=== PATIENT | female | born 1950 | race American Indian/Alaskan Native ===

== ENCOUNTER 2019-05-29 11:32 | Inpatient (IN) | payer MEDICARE ==
--- NOTE | 2019-05-29 13:10 | Emergency Department Report ---
ED GI Bleed HPI - General Chief complaint: GI Bleed Stated complaint: RECTAL BLEEDING Time Seen by Provider: 05/29/19 12:41 Source: patient, EMS Mode of arrival: Stretcher Limitations: No Limitations - History of Present Illness Initial comments: 68-year-old female the past medical history of diverticulitis and status post colostomy and 2013 with reversal in 2013 and history of GI bleed while she had a colostomy in place presents to the hospital complaining of rectal bleeding since 5 AM. Patient had initial perishables the bathroom but had brown bloody stool incontinence before making it to the toilet. Patient then had additional uncontrollable brown bloody stools at home and then after arrival to the ED. Patient does not take any blood thinners including aspirin. No pain reported. - Related Data Home Medications Medication Instructions Recorded Confirmed Last Taken No Known Home Medications [No 05/29/19 05/29/19 Unknown Reported Home Medications] Allergies Allergy/AdvReac Type Severity Reaction Status Date / Time No Known Allergies Allergy Unverified 05/29/19 13:11 ED Review of Systems ROS: Stated complaint: RECTAL BLEEDING Other details as noted in HPI Comment: All other systems reviewed and negative ED Past Medical Hx - Social History Smoking Status: Current Every Day Smoker Substance Use Type: Alcohol - Medications Home Medications: Home Medications Medication Instructions Recorded Confirmed Last Taken Type No Known Home Medications [No 05/29/19 05/29/19 Unknown History Reported Home Medications] ED Physical Exam - General Limitations: No Limitations - Other Other exam information: General: No acute distress Head: Atraumatic Eyes: normal appearance ENT: Moist mucous membranes Neck: Normal appearance, no midline tenderness Chest: Clear to auscultation bilaterally CV: Regular rate and rhythm Abdomen: Soft, normal bowel sounds, nontender, nondistended, no rebound or guarding, abdominal scar noted. brwon bloody stool soiled pants Back: Normal inspection Extremity: Normal inspection, full range of motion Neuro: Alert O x 3, no facial asymmetry, speech clear, no gross motor sensory deficit Psych: Appropriate behavior Skin: No rash ED Course Vital Signs 05/29/19 05/29/19 05/29/19 12:35 13:20 13:32 Temperature 98.0 F Pulse Rate 97 H 92 H Respiratory 20 15 18 Rate Blood Pressure 152/96 162/93 Blood Pressure [Left] O2 Sat by Pulse 100 97 100 Oximetry 05/29/19 05/29/19 05/29/19 13:38 14:20 14:47 Temperature Pulse Rate 87 97 H 91 H Respiratory 87 H 14 14 Rate Blood Pressure 162/93 Blood Pressure 162/90 150/100 [Left] O2 Sat by Pulse 98 99 98 Oximetry 05/29/19 05/29/19 05/29/19 15:12 15:20 15:56 Temperature Pulse Rate 87 88 88 Respiratory 11 L 12 15 Rate Blood Pressure 150/100 154/89 Blood Pressure 154/89 [Left] O2 Sat by Pulse 96 97 97 Oximetry 05/29/19 05/29/19 05/29/19 16:00 16:40 17:00 Temperature Pulse Rate 105 H 97 H 107 H Respiratory 16 13 16 Rate Blood Pressure 154/89 118/71 119/72 Blood Pressure [Left] O2 Sat by Pulse 97 99 99 Oximetry 05/29/19 05/29/19 05/29/19 17:27 17:55 18:52 Temperature 99 F Pulse Rate 95 H 88 89 Respiratory 15 16 12 Rate Blood Pressure Blood Pressure 138/89 111/77 144/82 [Left] O2 Sat by Pulse 99 97 99 Oximetry 05/29/19 05/29/19 05/29/19 19:15 19:45 20:30 Temperature 98.9 F Pulse Rate 106 H 113 H 100 H Respiratory 14 13 12 Rate Blood Pressure Blood Pressure 165/102 111/78 127/74 [Left] O2 Sat by Pulse 97 99 99 Oximetry - Reevaluation(s) Reevaluation #1: 05/29/19 15:19 pt will need admission no hypotension, tachycardia, or anemia at this time Patient signed out to DR Crowe to f/u cta and admit pt to hospitalist - Consultations Consultation #1: 05/29/19 14:02 case d/w DR gates (gi), rec cta, consult ordered ED Medical Decision Making - Lab Data Result diagrams: 05/30/19 05:57 05/30/19 05:57 Lab Results 05/29/19 05/29/19 05/29/19 Range/Units 13:01 13:01 13:01 WBC 5.2 (4.5-11.0) K/mm3 RBC 4.33 (3.65-5.03) M/mm3 Hgb 13.9 (10.1-14.3) gm/dl Hct 41.3 (30.3-42.9) % MCV 95 (79-97) fl MCH 32 (28-32) pg MCHC 34 (30-34) % RDW 13.4 (13.2-15.2) % Plt Count 233 (140-440) K/mm3 Lymph % (Auto) 45.8 H (13.4-35.0) % [place] % (Auto) 9.1 H (0.0-7.3) % Eos % (Auto) 3.9 (0.0-4.3) % Baso % (Auto) Case Management Specialist Lymph # 2.4 (1.2-5.4) K/mm3 [place] # 0.5 (0.0-0.8) K/mm3 Eos # 0.2 (0.0-0.4) K/mm3 Baso # 0.1 (0.0-0.1) K/mm3 Seg Neutrophils % 39.4 L (40.0-70.0) % Seg Neutrophils # 2.1 (1.8-7.7) K/mm3 PT 14.3 (12.2-14.9) Sec. INR 1.10 (0.87-1.13) APTT 31.6 (24.2-36.6) Sec. Sodium Potassium Chloride Carbon Dioxide Anion Gap BUN Creatinine Estimated GFR BUN/Creatinine Ratio Glucose Calcium Total Bilirubin AST ALT Alkaline Phosphatase Total Protein Albumin Albumin/Globulin Ratio Blood Type B POSITIVE Antibody Screen Negative 05/29/19 05/29/19 Range/Units 13:01 13:53 WBC (4.5-11.0) K/mm3 RBC (3.65-5.03) M/mm3 Hgb (10.1-14.3) gm/dl Hct (30.3-42.9) % MCV (79-97) fl MCH (28-32) pg MCHC (30-34) % RDW (13.2-15.2) % Plt Count (140-440) K/mm3 Lymph % (Auto) (13.4-35.0) % [place] % (Auto) (0.0-7.3) % Eos % (Auto) (0.0-4.3) % Baso % (Auto) Lymph # (1.2-5.4) K/mm3 [place] # (0.0-0.8) K/mm3 Eos # (0.0-0.4) K/mm3 Baso # (0.0-0.1) K/mm3 Seg Neutrophils % (40.0-70.0) % Seg Neutrophils # (1.8-7.7) K/mm3 PT (12.2-14.9) Sec. INR (0.87-1.13) APTT (24.2-36.6) Sec. Sodium TNR 139 Potassium TNR 3.9 Chloride TNR 103.9 Carbon Dioxide TNR 25 Anion Gap TNR 14 BUN TNR 18 H Creatinine TNR 0.9 Estimated GFR TNR > 60 BUN/Creatinine Ratio TNR 20 Glucose TNR 109 H Calcium TNR 9.3 Total Bilirubin TNR 0.80 AST TNR 95 H ALT TNR 99 H Alkaline Phosphatase TNR 84 Total Protein TNR 6.9 Albumin TNR 3.5 L Albumin/Globulin Ratio TNR 1.0 Blood Type Antibody Screen - Medical Decision Making Patient will require admission for significant GI bleed. Vitals and hemoglobin without critical findings. GI consulted - Differential Diagnosis diverticula bleed, AVM, cancer Critical Care Time: No Critical care attestation.: If time is entered above; I have spent that time in minutes in the direct care of this critically ill patient, excluding procedure time. ED Disposition Clinical Impression: Rectal bleed, History of diverticulitis Disposition: OP ADMIT IP TO THIS HOSP Is pt being admited?: Yes Condition: Stable Time of Disposition: 16:08
[2019-05-29 13:27] LABS: Basophils # (Auto) 0.1 K/mm3 (0.0-0.1); Eosinophils # (Auto) 0.2 K/mm3 (0.0-0.4); Eosinophils % (Auto) 3.9 % (0.0-4.3); Hematocrit 41.3 % (30.3-42.9); Hemoglobin 13.9 gm/dl (10.1-14.3); Lymphocytes # (Auto) 2.4 K/mm3 (1.2-5.4); Lymphocytes % (Auto) 45.8 % (13.4-35.0); Mean Corpuscular HGB Conc 34 % (30-34); Mean Corpuscular Volume 95 fl (79-97); Monocytes # (Auto) 0.5 K/mm3 (0.0-0.8); Monocytes % (Auto) 9.1 % (0.0-7.3); Platelet Count 233 K/mm3 (140-440); Red Blood Count 4.33 M/mm3 (3.65-5.03); Red Cell Distribution Width 13.4 % (13.2-15.2)
[2019-05-29 13:28] LABS: INR 1.1 (0.87-1.13)
[2019-05-29 13:29] LABS: Partial Thromboplastin Time 31.6 Sec. (24.2-36.6)
[2019-05-29 13:47] LABS: BUN/Creatinine Ratio TNR; Blood Urea Nitrogen TNR mg/dL (7-17); Calcium TNR mg/dL (8.4-10.2)
[2019-05-29 13:48] LABS: Alanine Aminotransferase TNR units/L (7-56); Albumin TNR g/dL (3.9-5); Hemolysis Index TNR
[2019-05-29 14:30] LABS: Alanine Aminotransferase 99 units/L (7-56); Albumin 3.5 g/dL (3.9-5); BUN/Creatinine Ratio 20; Blood Urea Nitrogen 18 mg/dL (7-17); Calcium 9.3 mg/dL (8.4-10.2); Hemolysis Index 8
--- NOTE | 2019-05-29 15:10 | Gastroenterology Consultation ---
History of Present Illness - Reason for Consult Consult date: 05/29/19 GI bleed Requesting physician: LISA MARROQUIN - History of Present Illness Patient is a 68 y/o female with PMH of diverticulitis s/p colostomy with reversal in 2012 who presented to ED with c/o rectal bleeding to which GI has been consulted. This afternoon patient was resting on stretcher w/o acute distress. Reports acute onset of rectal bleeding this am that has continued with multiple episode this afternoon with bright red and dark red blood. Admits to mild lower abdominal discomfort described as cramping. Denies fever, CP, SOB, N/v, hematemeis, diarrhea, or constipation. No hx of prior GI bleeding or PUD. No NSAID use or blood thinning medications at home. Drinks on average 3 shots of liquor daily but denies a hx of liver disease. Last colonoscopy in 2012 prior to reversal. Past History Past Medical History: other (see HPI) Past Surgical History: bowel surgery (colostomy with reversal ) Social history: smoking, other (alcohol) Medications and Allergies Allergies Allergy/AdvReac Type Severity Reaction Status Date / Time No Known Allergies Allergy Unverified 05/29/19 13:11 Active Meds: medications reviewed/updated as required Review of Systems - Review of Systems All systems: negative Gastrointestinal: abdominal pain (lower cramping), other (rectal bleeding) Exam - Constitutional Vital Signs: Temp Pulse Resp BP Pulse Ox 98.0 F 91 H 14 150/100 98 05/29/19 12:35 05/29/19 14:47 05/29/19 14:47 05/29/19 14:47 05/29/19 14:47 General appearance: no acute distress - EENT Eyes: PERRL, EOM intact ENT: hearing intact - Respiratory Respiratory effort: normal - Cardiovascular Rhythm: regular - Gastrointestinal General gastrointestinal: Present: soft, non-tender, non-distended, normal bowel sounds - Integumentary Integumentary: Present: warm, dry - Neurologic Neurological: alert and oriented x3 - Labs CBC & Chem 7: 05/29/19 13:01 05/29/19 13:53 Lab Results: Laboratory Results - last 24 hr 05/29/19 05/29/19 05/29/19 13:01 13:01 13:01 WBC 5.2 RBC 4.33 Hgb 13.9 Hct 41.3 MCV 95 MCH 32 MCHC 34 RDW 13.4 Plt Count 233 Lymph % (Auto) 45.8 H [place] % (Auto) 9.1 H Eos % (Auto) 3.9 Baso % (Auto) Civil Estimator Lymph # 2.4 [place] # 0.5 Eos # 0.2 Baso # 0.1 Seg Neutrophils % 39.4 L Seg Neutrophils # 2.1 PT 14.3 INR 1.10 APTT 31.6 Sodium Potassium Chloride Carbon Dioxide Anion Gap BUN Creatinine Estimated GFR BUN/Creatinine Ratio Glucose Calcium Total Bilirubin AST ALT Alkaline Phosphatase Total Protein Albumin Albumin/Globulin Ratio Blood Type B POSITIVE Antibody Screen Negative 05/29/19 05/29/19 13:01 13:53 WBC RBC Hgb Hct MCV MCH MCHC RDW Plt Count Lymph % (Auto) [place] % (Auto) Eos % (Auto) Baso % (Auto) Lymph # [place] # Eos # Baso # Seg Neutrophils % Seg Neutrophils # PT INR APTT Sodium TNR 139 Potassium TNR 3.9 Chloride TNR 103.9 Carbon Dioxide TNR 25 Anion Gap TNR 14 BUN TNR 18 H Creatinine TNR 0.9 Estimated GFR TNR > 60 BUN/Creatinine Ratio TNR 20 Glucose TNR 109 H Calcium TNR 9.3 Total Bilirubin TNR 0.80 AST TNR 95 H ALT TNR 99 H Alkaline Phosphatase TNR 84 Total Protein TNR 6.9 Albumin TNR 3.5 L Albumin/Globulin Ratio TNR 1.0 Blood Type Antibody Screen Assessment and Plan 1.GI bleed 2.H/o diverticulitis s/p colostomy with reversal 2012 -patient reports acute onset today of rectal bleeding with bright red and dark red blood x multiple episodes. +associated lower abd cramping. No hematemesis. -H/H WNL (13.9/41.3); continue to monitor H/H and transfuse as needed -currently HD stable -etiology-likely diverticular given history vs other -recommend stat CTA for further evaluation -if positive, consult IR for possible embolization -if negative with prep for colon +/- EGD tomorrow -Keep NPO for now -continue PPI and supportive care -will follow
[2019-05-29] MEDS ORDERED: PANTOPRAZOLE 40 MG INJ IV ONE (15:50)
[2019-05-29] MEDS: PANTOPRAZOLE 40 MG INJ IV SCH ×2 (15:56→23:26)
--- NOTE | 2019-05-29 16:19 | Cat Scan Report ---
CTA ABDOMEN AND PELVIS HISTORY: GI bleed COMPARISON: None. TECHNIQUE: Noncontrast CT abdomen obtained. Routine postcontrast CT angiography of the abdomen and p alycia performed. Multiplanar/MIP/3D reformats were post-processed. CONTRAST: 100 ml of Omnipaque 350 FINDINGS: CTA ABDOMEN: Abdominal Aorta: Mildly ectatic with scattered calcific plaques. No stenosis, dissection or aneurysm Celiac Artery: No significant abnormality. Superior Mesenteric Artery: No significant abnormality. Renal Arteries: Right: No significant abnormality. Left: No significant abnormality. Inferior Mesenteric Artery: No significant abnormality. CTA PELVIS: RIGHT: Common Iliac Artery: Mild scattered calcific plaques. No stenosis. Internal Iliac Artery: Mild scattered calcific plaques. No stenosis. External Iliac Artery: No significant abnormality. LEFT: Common Iliac Artery: No significant abnormality. Internal Iliac Artery: No significant abnormality. External Iliac Artery: No significant abnormality. NONTARGET STRUCTURES: ABDOMEN: GI:The liver, biliary system and pancreas are unremarkable. There are numerous diverticula throughou t the length of the colon. No bowel obstruction or focal inflammation. No obvious site of GI bleeding on CTA. :No significant abnormality. Lymphatics:No significant abnormality. PELVIS: :Multiple partially calcified fibroids are noted in the uterus. No adnexal abnormality. Osseous Structures: Moderate lumbar spondylosis. Additional Findings: Moderate infraumbilical hernia containing fat is identified. IMPRESSION: Mild atherosclerotic plaques in the aorta and common iliac arteries. No stenosis, aneurysm or dissect ion. No site of GI bleeding is detected on CTA. Extensive diverticulosis of the colon. Signer Name: Dieudonne Schrader Jr, MD Signed: 05/29/2019 4:14 PM Workstation Name: [id number]
--- NOTE | 2019-05-29 17:40 | History and Physical Report ---
History of Present Illness Chief complaint: blood per rectum History of present illness: 68-year-old woman with history of diverticulitis for which she had a colostomy in 2013 reversal the following year in 2013. She has a history of GI bleed due to diverticulosis. The patient presents with rectal bleeding x1 day. States that she has had large episodes of dark blood with incontinence. The patient denies dizziness, the patient denies any abdominal cramping or pain. - Past medical history; a history of diverticulosis, history of GI bleed, history of diverticulitis status post colostomy followed by reversal Past surgical history; colostomy and reversal Social history, current everyday smoker, admits to alcohol abuse daily Family history; noncontributory Past History Past Medical History: other (see HPI) Past Surgical History: bowel surgery (colostomy with reversal ) Social history: smoking, other (alcohol) Medications and Allergies Allergies Allergy/AdvReac Type Severity Reaction Status Date / Time No Known Allergies Allergy Unverified 05/29/19 13:11 Active Meds: Active Medications Pantoprazole Sodium (Protonix) 40 mg IV BID SUNITA Last Admin: 05/29/19 15:56 Dose: 40 mg Documented by: Polyethylene Glycol/Electrolytes (Golytely) 4,000 ml PO ONCE ONE Stop: 05/29/19 18:01 Review of Systems All systems: negative (blood per rectum) Constitutional: weakness Exam - Constitutional Vitals: Temp Pulse Resp BP Pulse Ox 99 F 95 H 15 138/89 99 05/29/19 17:27 05/29/19 17:27 05/29/19 17:27 05/29/19 17:27 05/29/19 17:27 General appearance: Present: no acute distress, well-nourished - EENT Eyes: Present: PERRL ENT: hearing intact, clear oral mucosa - Neck Neck: Present: supple, normal ROM - Respiratory Respiratory effort: normal Respiratory: bilateral: CTA - Cardiovascular Heart Sounds: Present: S1 & S2. Absent: rub, click - Extremities Extremities: pulses symmetrical, No edema Peripheral Pulses: within normal limits - Abdominal General gastrointestinal: Present: soft, non-tender, non-distended, normal bowel sounds Female genitourinary: Present: normal - Integumentary Integumentary: Present: clear, warm, dry - Musculoskeletal Musculoskeletal: gait normal, strength equal bilaterally - Psychiatric Psychiatric: appropriate mood/affect, intact judgment & insight - Neurologic Neurologic: CNII-XII intact, moves all extremities Results - Labs CBC & Chem 7: 05/29/19 19:03 05/29/19 13:53 Labs: Laboratory Last Values WBC 5.2 K/mm3 (4.5-11.0) 05/29/19 13:01 RBC 4.33 M/mm3 (3.65-5.03) 05/29/19 13:01 Hgb 13.9 gm/dl (10.1-14.3) 05/29/19 13:01 Hct 41.3 % (30.3-42.9) 05/29/19 13:01 MCV 95 fl (79-97) 05/29/19 13:01 MCH 32 pg (28-32) 05/29/19 13:01 MCHC 34 % (30-34) 05/29/19 13:01 RDW 13.4 % (13.2-15.2) 05/29/19 13:01 Plt Count 233 K/mm3 (140-440) 05/29/19 13:01 Lymph % (Auto) 45.8 % (13.4-35.0) H 05/29/19 13:01 [place] % (Auto) 9.1 % (0.0-7.3) H 05/29/19 13:01 Eos % (Auto) 3.9 % (0.0-4.3) 05/29/19 13:01 Baso % (Auto) Principal Database Developer 05/29/19 13:01 Lymph # 2.4 K/mm3 (1.2-5.4) 05/29/19 13:01 [place] # 0.5 K/mm3 (0.0-0.8) 05/29/19 13:01 Eos # 0.2 K/mm3 (0.0-0.4) 05/29/19 13:01 Baso # 0.1 K/mm3 (0.0-0.1) 05/29/19 13:01 Seg Neutrophils % 39.4 % (40.0-70.0) L 05/29/19 13:01 Seg Neutrophils # 2.1 K/mm3 (1.8-7.7) 05/29/19 13:01 PT 14.3 Sec. (12.2-14.9) 05/29/19 13:01 INR 1.10 (0.87-1.13) 05/29/19 13:01 APTT 31.6 Sec. (24.2-36.6) 05/29/19 13:01 Sodium 139 mmol/L (137-145) 05/29/19 13:53 Potassium 3.9 mmol/L (3.6-5.0) 05/29/19 13:53 Chloride 103.9 mmol/L (98-107) 05/29/19 13:53 Carbon Dioxide 25 mmol/L (22-30) 05/29/19 13:53 Anion Gap 14 mmol/L 05/29/19 13:53 BUN 18 mg/dL (7-17) H 05/29/19 13:53 Creatinine 0.9 mg/dL (0.7-1.2) 05/29/19 13:53 Estimated GFR > 60 ml/min 05/29/19 13:53 BUN/Creatinine Ratio 20 % 05/29/19 13:53 Glucose 109 mg/dL (65-100) H 05/29/19 13:53 Calcium 9.3 mg/dL (8.4-10.2) 05/29/19 13:53 Total Bilirubin 0.80 mg/dL (0.1-1.2) 05/29/19 13:53 AST 95 units/L (5-40) H 05/29/19 13:53 ALT 99 units/L (7-56) H 05/29/19 13:53 Alkaline Phosphatase 84 units/L (35-129) 05/29/19 13:53 Total Protein 6.9 g/dL (6.3-8.2) 05/29/19 13:53 Albumin 3.5 g/dL (3.9-5) L 05/29/19 13:53 Albumin/Globulin Ratio 1.0 % 05/29/19 13:53 Blood Type B POSITIVE 05/29/19 13:01 Antibody Screen Negative 05/29/19 13:01 Assessment and Plan Assessment and plan: 68-year-old woman with a history of diverticulosis History includes colostomy followed by reversal in who presents with dark red blood per rectum in large amounts CTA a/p Mild atherosclerotic plaques in the aorta and common iliac arteries. No stenosis, aneurysm or dissection. No site of GI bleeding is detected on CTA. Extensive diverticulosis of the colon. GI bleed/acute blood loss -Most likely lower GI bleed from diverticulosis Protonix twice daily -GI input appreciated, If patient continues to worsen, will need bleeding scan and IR intervention DVT prophylaxis; SCDs. No blood thinners in light of GI bleed. Etoh dependence and withdrawal - ciwa protocol, thiamine and folate -d5 containing IVF -preventative health counseling performed for 17 minutes Tobacco abuse/dependence Smoking cessation counseling performed for 10 minutes, nicotine patches when necessary Home med list: Updated, hypertension order requesting updated home meds
[2019-05-29] MEDS ORDERED: SODIUM CHLORIDE 0.9% 1000 ML 1,000 ML IV ONE (17:54)
[2019-05-29] MEDS ORDERED: POLYETHYLENE GLYCOL/ELECT SOLN 4000 ML PO ONE (18:00)
[2019-05-29] MEDS ORDERED: ONDANSETRON 4 MG/2 ML INJ IV PRN (18:41)
[2019-05-29] MEDS ORDERED: ACETAMINOPHEN 325 MG TAB PO PRN (18:41)
[2019-05-29] MEDS ORDERED: SODIUM CHLORIDE 0.9% 1000 ML 1,000 ML IV SCH (19:15)
[2019-05-29 19:21] LABS: Hemoglobin 11.9 gm/dl (10.1-14.3)
[2019-05-29 19:22] LABS: Hematocrit 35.7 % (30.3-42.9)
[2019-05-29] MEDS ORDERED: LORazepam 2 MG/ML VIAL IV PRN ×3 (21:09)
[2019-05-29 23:15] LABS: Hematocrit 35.1 % (30.3-42.9); Hemoglobin 11.8 gm/dl (10.1-14.3)
[2019-05-29] MEDS: NICOTINE 14 MG/24 HR PATCH TD SCH (23:26)
[2019-05-29] MEDS: D5W/0.45% NACL 1,000 ML IV SCH (23:28)
[2019-05-30 06:26] LABS: Basophils % (Auto) 0.4 % (0.0-1.8); Eosinophils # (Auto) 0.1 K/mm3 (0.0-0.4); Eosinophils % (Auto) 2.5 % (0.0-4.3); Hematocrit 32.2 % (30.3-42.9); Hemoglobin 10.6 gm/dl (10.1-14.3); Lymphocytes # (Auto) 2.2 K/mm3 (1.2-5.4); Lymphocytes % (Auto) 42.3 % (13.4-35.0); Mean Corpuscular HGB Conc 33 % (30-34); Mean Corpuscular Volume 99 fl (79-97); Monocytes # (Auto) 0.5 K/mm3 (0.0-0.8); Platelet Count 186 K/mm3 (140-440); Red Blood Count 3.25 M/mm3 (3.65-5.03); Red Cell Distribution Width 13.4 % (13.2-15.2)
[2019-05-30] MEDS ORDERED: MAGNESIUM CITRATE 300 ML ORAL LIQD PO ONE (06:30)
[2019-05-30] MEDS ORDERED: FLEET ENEMA PR ONE (06:31)
[2019-05-30 06:37] LABS: BUN/Creatinine Ratio 24; Blood Urea Nitrogen 19 mg/dL (7-17); Calcium 8.2 mg/dL (8.4-10.2); Hemolysis Index 8
--- NOTE | 2019-05-30 08:39 | Progress Note ---
Assessment and Plan Assessment and plan: 68-year-old woman with a history of diverticulosis, diverticulitis with colostomy s/p reversal in 2012 who presents with large amounts of dark red blood per rectum. Hemoglobin dropped from 13.9 to 10.6 requiring admission and workup. * CTA a/p Impression: Mild atherosclerotic plaques in the aorta and common iliac arteries. No stenosis, aneurysm or dissection. No site of GI bleeding is detected on CTA. Extensive diverticulosis of the colon. GI bleed/acute blood loss -Most likely lower GI bleed from diverticulosis Protonix twice daily -GI input appreciated, colonoscopy pending DVT prophylaxis; SCDs. No blood thinners in light of GI bleed. Etoh dependence and withdrawal - ciwa protocol, thiamine and folate -d5 containing IVF -preventative health counseling performed for 17 minutes Tobacco abuse/dependence Smoking cessation counseling performed for 10 minutes, nicotine patches when necessary History Interval history: Patient was seen and examined. Follow-up on current diagnosis of GIB. Overnight uneventful as no events directly reported to me. Patient denies any chest pain, shortness breath, nausea/vomiting. Imaging, nursing note, chart, labs and old chart reviewed. Discussed with patient. Hospitalist Physical - Physical exam Narrative exam: Gen: WDWN, NAD, Awake, Alert, Orientated HEENT: NCAT, EOMI, PERRL, OP Clear Neck: supple, no adenopathy, no thyromegaly, no JVD CVS/Heart: RRR, normal S1S2, pulses present bilaterally Chest/Lungs: CTA B, Symmetrical chest expansion, good air entry bilaterally GI/Abdomen: soft, NTND, good bowel sounds, no guarding or rebound /Bladder: no suprapubic tenderness, no CVA or paraspinal tenderness Extermity/Skin: no c/c/e, no obvious rash MSK: FROM x 4 Neuro: CN 2-12 grossly intact, no new focal deficits Psych: calm - Constitutional Vitals: Temp Pulse Resp BP Pulse Ox 97.8 F 73 20 146/84 98 05/30/19 07:17 05/30/19 07:17 05/30/19 07:17 05/30/19 07:17 05/30/19 07:17 General appearance: Present: no acute distress, well-nourished Results - Labs CBC & Chem 7: 05/30/19 05:57 05/30/19 05:57 Labs: Laboratory Last Values WBC 5.1 K/mm3 (4.5-11.0) 05/30/19 05:57 RBC 3.25 M/mm3 (3.65-5.03) L 05/30/19 05:57 Hgb 10.6 gm/dl (10.1-14.3) 05/30/19 05:57 Hct 32.2 % (30.3-42.9) 05/30/19 05:57 MCV 99 fl (79-97) H 05/30/19 05:57 MCH 33 pg (28-32) H 05/30/19 05:57 MCHC 33 % (30-34) 05/30/19 05:57 RDW 13.4 % (13.2-15.2) 05/30/19 05:57 Plt Count 186 K/mm3 (140-440) 05/30/19 05:57 Lymph % (Auto) 42.3 % (13.4-35.0) H 05/30/19 05:57 [place] % (Auto) 9.0 % (0.0-7.3) H 05/30/19 05:57 Eos % (Auto) 2.5 % (0.0-4.3) 05/30/19 05:57 Baso % (Auto) 0.4 % (0.0-1.8) 05/30/19 05:57 Lymph # 2.2 K/mm3 (1.2-5.4) 05/30/19 05:57 [place] # 0.5 K/mm3 (0.0-0.8) 05/30/19 05:57 Eos # 0.1 K/mm3 (0.0-0.4) 05/30/19 05:57 Baso # 0.0 K/mm3 (0.0-0.1) 05/30/19 05:57 Seg Neutrophils % 45.8 % (40.0-70.0) 05/30/19 05:57 Seg Neutrophils # 2.3 K/mm3 (1.8-7.7) 05/30/19 05:57 PT 14.3 Sec. (12.2-14.9) 05/29/19 13:01 INR 1.10 (0.87-1.13) 05/29/19 13:01 APTT 31.6 Sec. (24.2-36.6) 05/29/19 13:01 Sodium 140 mmol/L (137-145) 05/30/19 05:57 Potassium 3.8 mmol/L (3.6-5.0) 05/30/19 05:57 Chloride 111.1 mmol/L (98-107) H 05/30/19 05:57 Carbon Dioxide 19 mmol/L (22-30) L 05/30/19 05:57 Anion Gap 14 mmol/L 05/30/19 05:57 BUN 19 mg/dL (7-17) H 05/30/19 05:57 Creatinine 0.8 mg/dL (0.7-1.2) 05/30/19 05:57 Estimated GFR > 60 ml/min 05/30/19 05:57 BUN/Creatinine Ratio 24 % 05/30/19 05:57 Glucose 112 mg/dL (65-100) H 05/30/19 05:57 Calcium 8.2 mg/dL (8.4-10.2) L 05/30/19 05:57 Total Bilirubin 0.80 mg/dL (0.1-1.2) 05/29/19 13:53 AST 95 units/L (5-40) H 05/29/19 13:53 ALT 99 units/L (7-56) H 05/29/19 13:53 Alkaline Phosphatase 84 units/L (35-129) 05/29/19 13:53 Total Protein 6.9 g/dL (6.3-8.2) 05/29/19 13:53 Albumin 3.5 g/dL (3.9-5) L 05/29/19 13:53 Albumin/Globulin Ratio 1.0 % 05/29/19 13:53 Blood Type B POSITIVE 05/29/19 13:01 Antibody Screen Negative 05/29/19 13:01 Active Medications - Current Medications Current Medications: Generic Name Dose Route Start Last Admin Trade Name Freq PRN Reason Stop Dose Admin Acetaminophen 650 mg 05/29/19 18:41 Tylenol PO Q4H PRN Pain MILD(1-3)/Fever >100.5/KEITH Folic Acid 1 mg/ Sodium 50.2 mls @ 200.8 mls/hr 05/30/19 10:00 Chloride IV QDAY SUNITA Thiamine HCl 100 mg/ Sodium 51 mls @ 100 mls/hr 05/30/19 10:00 Chloride IV QDAY SUNITA Dextrose/Sodium Chloride 1,000 mls @ 100 mls/hr 05/29/19 22:00 05/29/19 23:28 D5/0.45ns IV 100 mls/hr DIRECT SUNITA Administration Lorazepam 2 mg 05/29/19 21:09 Ativan IV Q1H PRN CIWA-Ar 8-15 Lorazepam 4 mg 05/29/19 21:09 Ativan IV Q1H PRN CIWA-Ar 16-25 Lorazepam 4 mg 05/29/19 21:09 Ativan IV Q15MIN PRN CIWA-Ar >25 Nicotine 14 mg 05/29/19 22:00 05/29/19 23:26 Habitrol TD 14 mg QDAY@2200 SUNITA Administration Ondansetron HCl 4 mg 05/29/19 18:41 05/29/19 23:24 Zofran IV 4 mg Q8H PRN Administration Nausea And Vomiting Pantoprazole Sodium 40 mg 05/29/19 22:00 05/29/19 23:26 Protonix IV 40 mg BID SUNITA Administration Sodium Chloride 10 ml 05/29/19 22:00 05/29/19 23:26 Sodium Chloride Flush Syringe 10 Ml IV 10 ml BID SUNITA Administration Sodium Chloride 10 ml 05/29/19 18:41 Sodium Chloride Flush Syringe 10 Ml IV PRN PRN LINE FLUSH
[2019-05-30] MEDS: FOLIC ACID 1 MG in SODIUM CHLORIDE 0.9% 50 ML IV SCH (09:20)
[2019-05-30] MEDS: D5W/0.45% NACL 1,000 ML IV SCH (09:24)
[2019-05-30] MEDS: PANTOPRAZOLE 40 MG INJ IV SCH ×2 (09:26→22:04)
[2019-05-30] MEDS: THIAMINE 100 MG in SODIUM CHLORIDE 0.9% 50 ML IV SCH (10:25)
--- NOTE | 2019-05-30 13:38 | Anesthesia Consultation ---
Anesthesia Consult and Med Hx Date of service: 05/30/19 - Airway Anesthetic Teeth Evaluation: Good ROM Head & Neck: Adequate Mental/Hyoid Distance: Adequate Mallampati Class: Class II Intubation Access Assessment: Probably Good - Pre-Operative Health Status ASA Pre-Surgery Classification: ASA3 Proposed Anesthetic Plan: MAC - Pulmonary Hx Smoking: Yes (1/2 PPD) Hx Asthma: No Hx Respiratory Symptoms: No SOB: No COPD: No Home Oxygen Therapy: No Hx Pneumonia: No Hx Sleep Apnea: Yes - Cardiovascular System Hx Hypertension: Yes (HTN on this admission-new) Hx Coronary Artery Disease: No Hx Heart Attack/AMI: No Hx Angina: No Hx Percutaneous Transluminal Coronary Angioplasty (PTCA): No Hx Cardia Arrhythmia: No Hx Pacemaker: No Hx Internal Defibrillator: No Hx Valvular Heart Disease: No Hx Heart Murmur: No Hx Peripheral Vascular Disease: No - Central Nervous System Hx Neuromuscular Disorder: No Hx Seizures: No CVA: No Hx Back Pain: Yes Hx Psychiatric Problems: No - Gastrointestinal Hx Ulcer: No Hx Gastroesophageal Reflux Disease: No - Endocrine Hx Renal Disease: No Hx End Stage Renal Disease: No Hx Cirrhosis: No Hx Liver Disease: Yes (Hep C) Hx Insulin Dependent Diabetes: No Hx Non-Insulin Dependent Diabetes: No Hx Thyroid Disease: No Hx Hypothyroidism: No Hx Hyperthyroidism: No - Hematic Hx Anemia: Yes - Other Systems Hx Alcohol Use: Yes (3 shots/day) Hx Substance Use: No Hx Cancer: No Hx Obesity: Yes
--- NOTE | 2019-05-30 13:39 | Anesthesia Day of Surgery ---
Anesthesia Day of Surgery - Day of Surgery Patient Examined: Yes Patient H&P Reviewed: Yes Patient is NPO: Yes Beta Blockers: No
[2019-05-30] MEDS ORDERED: PROPOFOL 200 MG/20 ML VIAL IV ONE ×2 (14:20)
[2019-05-30] MEDS ORDERED: LIDOCAINE MPF (2%) 20 MG/1 ML VIAL 5 ML ONE (14:30)
--- NOTE | 2019-05-30 14:57 | Post Operative Note ---
Pre-op diagnosis: gi bleed Post-op diagnosis: same Findings: colon: surgical site 15 cm from anal verge - diverticulosis throughout - old blood throughout w/o signs bleeding (pt did recieve enema) -T.I. w/o blood (suggest colon bleed) - internal hemorrhoids Procedure: colonoscopy Anesthesia: MAC Surgeon: EMELI CONTRERAS Estimated blood loss: none Pathology: list Specimen disposition: to lab Condition: stable Disposition: floor
--- NOTE | 2019-05-30 15:18 | Operative Report ---
PROCEDURE: Colonoscopy. INDICATIONS: 1. Anemia. 2. Gastrointestinal bleed. 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 COMPLICATIONS: None. DESCRIPTION OF PROCEDURE: The patient brought to the procedure suite. The patient had the procedure discussed with her at length. All risks, complications, and benefits discussed after which the patient signed for the procedure to be performed. The patient was placed in left lateral decubitus position. Rectal exam were performed prior to insertion of the scope. After adequate sedation medication as above, scope was introduced into the rectum and brought to the level of cecum. Ileocecal valve and appendiceal orifice, cecal strap were visualized. Terminal ileum was also visualized. Colonoscope was then removed and mucosa of colon visualized. Prep quality for this procedure was fair. The patient's vital signs remained stable throughout the procedure. FINDINGS: There were no mass lesions or polyps noted during this procedure. There was noted to be anastomosis site of end to end, colon to colon anastomosis, which appeared healthy, 50 cm from the anal verge. There were noted to be enlarged diverticula throughout the colon. No active bleeding was noted but noted to be old blood throughout the colon. Of note, the patient did receive an enema earlier today. Terminal ileum was visualized and showed no old blood; with this suggested that the bleeding was from a colon source. Retroflexion view performed. On retroflex, small internal hemorrhoids. The patient tolerated the procedure well. No complications during the procedure. IMPRESSION: 1. Old blood noted throughout the colon, but no old blood in the terminal ileum. 2. Diverticulosis throughout. 3. Anastomosis 50 cm from the anal verge appeared benign. 4. No active bleeding noted. 5. Internal hemorrhoids. 6. Probable colon bleeding source, but unclear where. RECOMMENDATIONS: 1. Start p.o. and advance as tolerated. 2. Follow hematocrit and transfuse as needed. 3. If signs of rebleeding, would consider CTA. 4. We will follow further recommendation based on progress. JOB# [id number] CAB/NTS
--- NOTE | 2019-05-30 15:24 | Post Anesthesia Evaluation ---
- Post Anesthesia Evaluation Patient Participated: Yes Airway Patent: Yes Stable Respiratory Function: Yes Nausea/Vomiting: No Temp > 96.8F: Yes Pain Manageable: Yes Adequeate Hydration: Yes Anesthesia Complications: No Block Receding Appropriately: Not Applicable Patient on Ventilator: No
[2019-05-30] MEDS: NICOTINE 14 MG/24 HR PATCH TD SCH (22:04)
[2019-05-31 05:39] LABS: Hematocrit 29.9 % (30.3-42.9); Hemoglobin 9.8 gm/dl (10.1-14.3); Mean Corpuscular HGB Conc 33 % (30-34); Mean Corpuscular Volume 97 fl (79-97); Platelet Count 177 K/mm3 (140-440); Red Blood Count 3.08 M/mm3 (3.65-5.03); Red Cell Distribution Width 13.4 % (13.2-15.2)
[2019-05-31] MEDS: PANTOPRAZOLE 40 MG INJ IV SCH (10:34)
[2019-05-31] MEDS: THIAMINE 100 MG in SODIUM CHLORIDE 0.9% 50 ML IV SCH (10:34)
[2019-05-31] MEDS: FOLIC ACID 1 MG in SODIUM CHLORIDE 0.9% 50 ML IV SCH (11:24)
--- NOTE | 2019-05-31 14:00 | Discharge Summary ---
Providers - Providers Date of Admission: 05/29/19 16:08 Date of discharge: 05/31/19 Attending physician: GRETCHEN CRUZ 05/29/19 14:02 Consult to Physician [CONS] Urgent Comment: doctor seen patient/gabino Consulting Provider: EMELI CONTRERAS Physician Instructions: Reason For Exam: gi bleed Hospitalization Condition: Stable Hospital course: 68-year-old woman with a history of diverticulosis, diverticulitis with colostomy s/p reversal in 2012 who presents with large amounts of dark red blood per rectum. Hemoglobin dropped from 13.9 to 10.6 requiring admission and workup. * CTA a/p Impression: Mild atherosclerotic plaques in the aorta and common iliac arteries. No stenosis, aneurysm or dissection. No site of GI bleeding is d etected on CTA. Extensive diverticulosis of the colon. Pre-op diagnosis: gi bleed Post-op diagnosis: same Findings: colon: surgical site 15 cm from anal verge - diverticulosis throughout - old blood throughout w/o signs bleeding (pt did recieve enema) -T.I. w/o blood (suggest colon bleed) - internal hemorrhoids Procedure: colonoscopy Anesthesia: MAC Surgeon: EMELI CONTRERAS Estimated blood loss: none Discharge Diagnoses: GI bleed/acute blood loss -Most likely lower GI bleed from diverticulosis Protonix twice daily -GI input appreciated, colonoscopy done -ok to d/c home per Dr. Daryn Quinn DVT prophylaxis; SCDs. No blood thinners in light of GI bleed. Etoh dependence and withdrawal - ciwa protocol, thiamine and folate -d5 containing IVF -preventative health counseling performed for 17 minutes Tobacco abuse/dependence Smoking cessation counseling performed for 10 minutes, nicotine patches when necessary Disposition: -01 TO HOME OR SELFCARE Time spent for discharge: 35 minutes Core Measure Documentation - Palliative Care Palliative Care/ Comfort Measures: Not Applicable - Core Measures Any of the following diagnoses?: none - VTE Discharge Requirements Deep Vein Thrombosis/Pulmonary Embolism Present on Admission: No Has pt received <5 days of overlap therapy or INR<2.0: No Anticoagulant overlap therapy prescribed at discharge: No Contraindication No Overlap Therapy order at DC: Not Indicated Exam - Physical Exam Narrative exam: Gen: WDWN, NAD, Awake, Alert, Orientated HEENT: NCAT, EOMI, PERRL, OP Clear Neck: supple, no adenopathy, no thyromegaly, no JVD CVS/Heart: RRR, normal S1S2, pulses present bilaterally Chest/Lungs: CTA B, Symmetrical chest expansion, good air entry bilaterally GI/Abdomen: soft, NTND, good bowel sounds, no guarding or rebound /Bladder: no suprapubic tenderness, no CVA or paraspinal tenderness Extermity/Skin: no c/c/e, no obvious rash MSK: FROM x 4 Neuro: CN 2-12 grossly intact, no new focal deficits Psych: calm - Constitutional Vitals: Temp Pulse Resp BP Pulse Ox 98.4 F 91 H 20 157/78 96 05/31/19 07:55 05/31/19 07:55 05/31/19 07:55 05/31/19 07:55 05/31/19 07:55 Plan Activity: other (no strenous activity unless cleared by PCP) Diet: low salt Follow up with: JENNA BRADFORD [Other] - 7 Days EMELI CONTRERAS MD [Staff Physician] - 7 Days Prescriptions: Nicotine [Habitrol] 14 mg TD QDAY@2200 #30 patch Pantoprazole [Protonix] 40 mg PO QDAY #30 tablet Thiamine [Vitamin B-1] 100 mg PO QDAY #30 tablet
--- NOTE | 2019-05-31 14:27 | Gastroenterology Progress Note ---
Assessment and Plan 1. GI bleed - s/p colonoscopy with suspected diverticular source of bleeding. H/H stable and no further bleeding episodes since procedure. okay to d/c from gi stand point. start iron replacement therapy, and f/u in GI clinic in 3-4 weeks. Subjective Date of service: 05/31/19 Principal diagnosis: GI bleed Interval history: no further bleeding episodes overnight/today. tolerating po Objective - Constitutional Vitals: Temp Pulse Resp BP Pulse Ox 98.4 F 91 H 20 157/78 96 05/31/19 07:55 05/31/19 07:55 05/31/19 07:55 05/31/19 07:55 05/31/19 07:55 General appearance: no acute distress - Respiratory Respiratory effort: normal Respiratory: bilateral: CTA - Cardiovascular Rhythm: regular Heart Sounds: Present: S1 & S2 - Gastrointestinal General gastrointestinal: Present: soft, non-tender, non-distended - Neurologic Neurological: alert and oriented x3 - Labs CBC & Chem 7: 05/31/19 04:37 05/30/19 05:57 Labs: Laboratory Results - last 24 hr 05/31/19 04:37 WBC 4.3 L RBC 3.08 L Hgb 9.8 L Hct 29.9 L MCV 97 MCH 32 MCHC 33 RDW 13.4 Plt Count 177
[2019-05-31 17:38] VITALS: BP 139/71
== END 2019-05-31 16:15 | disposition home or self-care (01) | DRG 378 ==
LOC: ED 11:32 → IMCU 16:08 → 2B-ACE 21:09
PROVIDERS: ADMIT Internal Medicine; ATTEND Internal Medicine
PROC: 0DJD8ZZ Inspection of Lower Intestinal Tract, Via Natural or Artificial Opening Endoscopic (ICD-10-PCS; principal; 2019-05-30)
DX: K57.31 Diverticulosis of large intestine without perforation or abscess with bleeding (principal); F10.239 Alcohol dependence with withdrawal, unspecified; Y90.9 Presence of alcohol in blood, level not specified; K64.8 Other hemorrhoids; I10 Essential (primary) hypertension; E66.9 Obesity, unspecified; F17.210 Nicotine dependence, cigarettes, uncomplicated; Z71.6 Tobacco abuse counseling; Z68.30 Body mass index [BMI] 30.0-30.9, adult
CPT/HCPCS: 36415; 74174; 80048; 80053; 85014; 85018; 85025; 85027; 85610; 85730; 86850; 86900; 86901; 96360; G0378; C9113; J2405; J2704; J3411; J7030; Q9967

== ENCOUNTER 2020-02-22 10:57 | Emergency (ER) | payer MEDICARE ==
[2020-02-22] MEDS ORDERED: SODIUM CHLORIDE 0.9% 500 ML 500 ML IV ONE (11:24)
--- NOTE | 2020-02-22 11:25 | Emergency Department Report ---
ED General Adult HPI - General Chief complaint: Tube Replacement Stated complaint: FEEDING TUBE LEAK PUI?: No Time Seen by Provider: 02/22/20 11:12 Source: patient, family, EMS (Verbal report received from emergency medical services. EMS documentation not available at time of chart dictation ), RN notes reviewed, old records reviewed Mode of arrival: Stretcher Limitations: Physical Limitation - History of Present Illness Initial comments: The patient was evaluated in the emergency department for symptoms described in the history of present illness. He/she was evaluated in the context of the global COVID-19 pandemic, which necessitated consideration that the patient might be at risk for infection with the virus that causes COVID-19. Institutional protocols and algorithms that pertain to the evaluation of patients at risk for COVID-19 are in a state of rapid change based on information released by regulatory bodies including the CDC and federal and state organizations. These policies and algorithms were followed during the patient's care in the emergency department. Please note that these policies, procedures and recommendations changed on a rapid basis. Patient herself is nonverbal, and therefore, history is obtained by speaking to her daughter, who initially presented with emergency medical services; Ms. Garcia Cindy; [phone] Ms. Mcbride is a 69-year-old female with a history of stroke, feeding tube placement at [facility] approximately 1-1/2 months ago, uncertain what kind of feeding tube, also has a history of alcohol dependence, and diverticulosis. She is brought to the hospital by emergency medical services and initially her daughter with a complaint of leaking from her left upper quadrant feeding tube, and tube malfunction. As per her daughter, no additional symptoms. Specifically, no headache, neck pain, chest pain, abdominal pain, shortness of breath, nausea, vomiting, diarrhea, fevers, chills, loss of taste or smell. Patient herself is nonverbal, awake, moving 4 extremities, and is able to nod yes no. She indicates that she is not having any physical pain at this time. Tube leaking started this morning, is constant, is reportedly painless, does not radiate anywhere, and does not have exacerbating or relieving factors. -: hour(s) Improves with: none Worsens with: none - Related Data Previous Rx's Medication Instructions Recorded Last Taken Type Nicotine [Habitrol] 14 mg TD QDAY@2200 #30 patch 05/31/19 Unknown Rx Pantoprazole [Protonix] 40 mg PO QDAY #30 tablet 05/31/19 Unknown Rx Thiamine [Vitamin B-1] 100 mg PO QDAY #30 tablet 05/31/19 Unknown Rx Allergies Allergy/AdvReac Type Severity Reaction Status Date / Time No Known Allergies Allergy Unverified 05/29/19 13:11 ED Review of Systems ROS: Stated complaint: FEEDING TUBE LEAK Other details as noted in HPI Constitutional: denies: fever Eyes: denies: eye discharge ENT: denies: epistaxis Respiratory: denies: cough Cardiovascular: denies: chest pain Gastrointestinal: denies: nausea, vomiting, diarrhea Genitourinary: denies: frequency Skin: lesions ED Past Medical Hx - Past Medical History Hx Hypertension: Yes (HTN on this admission-new) Hx Heart Attack/AMI: No Hx Liver Disease: Yes (Hep C) Hx Renal Disease: No Hx Seizures: No Hx Asthma: No Hx COPD: No Additional medical history: Diverticulitis - Surgical History Hx Pacemaker: No Hx Internal Defibrillator: No Additional Surgical History: Colostomy May 2012 - Reversed same year - Social History Smoking Status: Former Smoker Substance Use Type: None - Medications Home Medications: Home Medications Medication Instructions Recorded Confirmed Last Taken Type Nicotine [Habitrol] 14 mg TD QDAY@2200 #30 patch 05/31/19 Unknown Rx Pantoprazole [Protonix] 40 mg PO QDAY #30 tablet 05/31/19 Unknown Rx Thiamine [Vitamin B-1] 100 mg PO QDAY #30 tablet 05/31/19 Unknown Rx ED Physical Exam - General Limitations: Physical Limitation General appearance: alert, in no apparent distress - Head Head exam: Present: atraumatic, normocephalic - Eye Eye exam: Present: normal appearance. Absent: scleral icterus, conjunctival in jection - ENT ENT exam: Present: normal exam, normal orophraynx, mucous membranes moist, normal external ear exam - Neck Neck exam: Present: normal inspection, full ROM. Absent: tenderness, meningismus - Respiratory Respiratory exam: Present: normal lung sounds bilaterally. Absent: respiratory distress, wheezes, rales, rhonchi, stridor - Cardiovascular Cardiovascular Exam: Present: regular rate, normal rhythm, normal heart sounds. Absent: bradycardia, tachycardia, irregular rhythm, systolic murmur, diastolic murmur, rubs, gallop - GI/Abdominal GI/Abdominal exam: Present: soft, other (There is a feeding tube noted in the left upper quadrant. The skin appears to be macerated. Loose hardware is noted. Nonabsorbable sutures are noted.). Absent: distended, tenderness, guarding, rebound, rigid, pulsatile mass - Extremities Exam Extremities exam: Present: normal inspection, full ROM, other (2+ pulses noted in the bilateral upper and lower extremities. There is no palpable cord. negative Homans sign. Muscular compartments are soft. The pelvis is stable.). Absent: pedal edema, calf tenderness - Back Exam Back exam: Present: normal inspection, full ROM. Absent: tenderness, CVA tenderness (R), CVA tenderness (L), paraspinal tenderness, vertebral tenderness - Neurological Exam Neurological exam: Present: alert, other (The patient is awake. The patient is moving 4 extremities. The patient is nonverbal.) - Skin Skin exam: Present: warm ED Course Vital Signs 02/22/20 02/22/20 02/22/20 11:29 11:30 11:45 Temperature 97.9 F Pulse Rate 85 80 81 Respiratory 17 17 17 Rate Blood Pressure 118/74 116/70 116/70 O2 Sat by Pulse 97 96 98 Oximetry 02/22/20 02/22/20 02/22/20 12:00 12:15 12:30 Temperature Pulse Rate 86 82 77 Respiratory 18 19 17 Rate Blood Pressure 134/81 116/70 136/78 O2 Sat by Pulse 98 97 98 Oximetry 02/22/20 02/22/20 02/22/20 12:45 13:00 13:21 Temperature Pulse Rate 79 79 79 Respiratory 18 17 17 Rate Blood Pressure 136/78 146/89 136/78 O2 Sat by Pulse 96 97 Oximetry 02/22/20 02/22/20 02/22/20 13:30 13:45 14:00 Temperature Pulse Rate 76 84 85 Respiratory 17 16 12 Rate Blood Pressure 139/77 139/77 147/81 O2 Sat by Pulse 97 97 99 Oximetry 02/22/20 02/22/20 14:15 14:30 Temperature Pulse Rate 89 84 Respiratory 11 L 15 Rate Blood Pressure 139/77 138/76 O2 Sat by Pulse 97 97 Oximetry - Reevaluation(s) Reevaluation #1: 02/22/20 11:29 Differential diagnosis, include but not limited to: Tube malfunction, equipment failure, intra-abdominal abscess Assessment and plan: 69-year-old female with left upper quadrant feeding tube, does not appear to be a PEG tube, tube appears to be partially broken down, with evidence of malposition software and hardware. I have requested patient's medical records from [facility], to determine what specific procedure was performed, and what kind of feeding tube this is. In the meantime, we will obtain basic laboratory studies, CT scan of the abdomen pelvis. We will reassess after data points have resulted 02/22/20 15:44 Multiple phone calls and request were made for patient's medical records. However, they have not been sent or transmitted. Laboratory studies are unremarkable. CT scan of the abdomen pelvis is reviewed and appreciated. It appears that the patient has a PEG tube, without any significant surgical complications noted on CT scan of the abdomen pelvis. I was able to replace the patient's PEG tube with an 18 Israeli PEG tube. Please see procedure note. Post tube placement G study appears to be appropriate. Patient is medically suitable for discharge at this time with outpatient follow- up. She can follow-up with her outpatient primary care doctor or ceramics technician for tube maintenance, and follow-up with her outpatient primary care doctor or the wound care center clinic for superficial skin wound. In addition, I will place an elective/routine case management consult in the [employer] ordering system for case management to see if patient is eligible for any services at home - Feeding Tube Replacement Reason for Replacement: not functioning/damaged Initial Tube Inserted: greater than 4 weeks Type of Tube: other (peg feeding tube) Use of Tube: medications and feeding Insertion Site Prior to Procedure: excoriated Tube Used for Reinsertion: other (18 senegalese peg tube) Israeli Tube Size (F): 18 Balloon Size (mls): 8 Verification of Placement: gastrograffin injection Tube Secured by: tape/dressing, G-tube attachment device Patient Tolerated Procedure: well ED Medical Decision Making - Lab Data Result diagrams: 02/22/20 11:46 02/22/20 11:46 Vital Signs 02/22/20 02/22/20 02/22/20 11:29 11:30 11:45 Temperature 97.9 F Pulse Rate 85 80 81 Respiratory 17 17 17 Rate Blood Pressure 118/74 116/70 116/70 O2 Sat by Pulse 97 96 98 Oximetry 02/22/20 02/22/2002/21/20 12:00 12:15 12:30 Temperature Pulse Rate 86 82 77 Respiratory 18 19 17 Rate Blood Pressure 134/81 116/70 136/78 O2 Sat by Pulse 98 97 98 Oximetry 02/22/20 02/22/20 02/22/20 12:45 13:00 13:21 Temperature Pulse Rate 79 79 79 Respiratory 18 17 17 Rate Blood Pressure 136/78 146/89 136/78 O2 Sat by Pulse 96 97 Oximetry 02/22/20 02/22/20 02/22/20 13:30 13:45 14:00 Temperature Pulse Rate 76 84 85 Respiratory 17 16 12 Rate Blood Pressure 139/77 139/77 147/81 O2 Sat by Pulse 97 97 99 Oximetry 02/22/20 02/22/20 14:15 14:30 Temperature Pulse Rate 89 84 Respiratory 11 L 15 Rate Blood Pressure 139/77 138/76 O2 Sat by Pulse 97 97 Oximetry Lab Results 02/22/20 02/22/20 02/22/20 Range/Units 11:46 11:46 11:46 WBC 5.4 (4.5-11.0) K/mm3 RBC 4.50 (3.65-5.03) M/mm3 Hgb 14.0 (10.1-14.3) gm/dl Hct 42.3 (30.3-42.9) % MCV 94 (79-97) fl MCH 31 (28-32) pg MCHC 33 (30-34) % RDW 13.5 (13.2-15.2) % Plt Count 295 (140-440) K/mm3 PT 14.8 (12.2-14.9) Sec. INR 1.15 H (0.87-1.13) Sodium 139 (137-145) mmol/L Potassium 3.6 (3.6-5.0) mmol/L Chloride 103.8 (98-107) mmol/L Carbon Dioxide 24 (22-30) mmol/L Anion Gap 15 mmol/L BUN 15 (7-17) mg/dL Creatinine 0.5 L (0.6-1.2) mg/dL Estimated GFR > 60 ml/min BUN/Creatinine Ratio 30 % Glucose 144 H (65-100) mg/dL Calcium 10.4 H (8.4-10.2) mg/dL Magnesium 1.80 (1.7-2.3) mg/dL Total Creatine Kinase 51 (30-135) units/L - Radiology Data Radiology results: report reviewed, image reviewed Print Report Referring Physician: TAJ HANCOCK Patient Name: PADMINI MCBRIDE Date of : 1950 Sex: Female Report Date: 2020-02-22 Report Status: Finalized Findings [facility] [address] [place] [address] Cat Scan Report Signed Patient: PADMINI MCBRIDE MR#: [id number] 737 : 1950 Acct:[id number] Age/Sex: 69 / F ADM Date: 02/22/20 Loc: ED Attending Dr: Ordering Physician: TAJ HANCOCK MD Date of Service: 02/22/20 Procedure(s): CT abdomen pelvis w con Accession Number(s): [id number] cc: TAJ HANCOCK MD CT ABDOMEN AND PELVIS WITH CONTRAST INDICATION: Left upper quadrant feeding tube malfunction, discharge CONTRAST: 100 cc Omnipaque 300 IV COMPARISON: CTA abdomen and pelvis 05/29/[address] scans at this location are performed using CT dose reduction for ALARA by means of automated exposure control. FINDINGS: Mild oncology rep davey changes are seen in the lung bases without significant acute abnormality noted. No pneumoperitoneum is seen. Anterior pelvic wall fatty hernias are again seen without significant change. PEG tube appears well situated in the mid stomach with balloon well inflated. No fluid collections are seen in this area with the tract into extending without obvious abnormality to the skin surface. I see no abnormalities of the liver, spleen, adrenals, gallbladder, bile ducts, pancreas, or right kidney. There appears to be a tiny cyst in the left kidney. No lymphadenopathy is seen. No free fluid is noted. Prominent colonic diverticulosis is distributed widely. I do not see convincing evidence of acute diverticulitis however. Moderate amount of stool in the rectum might indicate mild impaction but I do not see proximal obstructive change. There is a suggestion of mild wall thickening in the mid right colon area of heavy diverticulosis which is not obviously associated with acute inflammation and may be a chronic change. No evidence of bowel obstruction is seen. No urinary obstructive changes are noted. Uterus shows multiple calcified leiomyomata. No adnexal masses are seen. IMPRESSION: 1. PEG tube appears within normal limits with no displacement or abnormal fluid collections 2. Prominent colonic diverticulosis as above. In an area of heavy diverticulosis in the mid right colon there is a suggestion of mild wall thickening which I suspect is a chronic change. I would suggest follow-up of this area, however. 3. Multiple uterine leiomyomata Signer Name: Bryan Mcneill MD Signed: 02/22/2020 2:01 PM Workstation Name: [id number] Transcribed By: Dictated By: Bryan Mcneill MD Electronically Authenticated By: Bryan Mcneill MD Signed Date/Time: 02/22/20 1401 DD/ 1354 TD/TT: Print Report Referring Physician: TAJ HANCOCK Patient Name: PADMINI MCBRIDE Date of : 1950 Sex: Female Report Date: 2020-02-22 Report Status: Finalized Findings [facility] [address] [place] [address] XRay Report Signed Patient: PADMINI MCBRIDE MR#: [id number] 737 : 1950 Acct:[id number] Age/Sex: 69 / F ADM Date: 02/22/20 Loc: ED Attending Dr: Ordering Physician: TAJ HANCOCK MD Date of Service: 02/22/20 Procedure(s): XR g-tube study Accession Number(s): [id number] cc: TAJ HANCOCK MD Fluoro Time In Minutes: ABDOMEN 2 VIEWS INDICATION / CLINICAL INFORMATION: s/p peg tube replacement. COMPARISON: None available. FINDINGS: TUBES / LINES: Gastrostomy tube is noted projected over the gastric lumen. After introduction of contrast material there is filling of the gastric lumen. No evidence of extraluminal contrast extravasation. BOWEL GAS PATTERN: Nonobstructive bowel gas pattern. FREE AIR / EXTRALUMINAL GAS: None seen. ADDITIONAL FINDINGS: Minimal contrast material is noted filling the bilateral renal collecting system. CHEST: Visualiz ed chest shows no significant abnormality. IMPRESSION: 1. Gastrostomy tube in appropriate position. Signer Name: Varun Fairchild MD Signed: 02/22/2020 4:11 PM Workstation Name: [id number] Transcribed By: Dictated By: VARUN FAIRCHILD Electronically Authenticated By: VARUN FAIRCHILD Signed Date/Time: 02/22/201610 DD/ 09 TD/TT: Critical care attestation.: If time is entered above; I have spent that time in minutes in the direct care of this critically ill patient, excluding procedure time. ED Disposition Clinical Impression: Encounter for feeding tube placement, Abnormal CT of the abdomen Open wound of abdominal wall Qualifiers: Encounter type: initial encounter Qualified Code(s): S31.109A - Unspecified ope n wound of abdominal wall, unspecified quadrant without penetration into peritoneal cavity, initial encounter Disposition: TO HOME OR SELFCARE Is pt being admited?: No Does the pt Need Aspirin: No Condition: Stable Additional Instructions: Do not take metformin medication for the next 2 days, if patient takes this medication. We recommend follow-up with a primary care doctor or ceramics technician within the next week for patient's tube. Patient found to have chronic wound on anterior abdominal wall next to feeding tube. We recommend cleaning the site daily, and then applying a nonstick dressing to the feeding tube site. We recommend follow-up with a primary care doctor or wound care center for anterior abdominal wound within the next week. CT scan of the abdomen pelvis today demonstrated no acute emergent condition, however, nonspecific abnormalities were noted, which require follow-up with a primary care doctor or ceramics technician. Please have a primary care doctor or ceramics technician contact the medical records department to obtain CT scan report, and follow-up on nonemergent incidental findings. Failure to have this done in follow-up in a timely fashion may result in undiagnosed colonic cancer, tumor, malignancy. Please return to the emergency room right away with new pain, worsened pain, migration of pain, projectile vomiting, change in mental status, confusion, fevers, chills, lethargy, irritability, projectile vomiting, change in mental status, confusion, inability to tolerate liquid feeds. Patient's feeding tube may be used for food/feedings and/or medicines at this time. Referrals: [facility] [Other] - 3-5 Days HUGO DUMONT MD [Staff Physician] - 3-5 Days HUNG BENNETT MD [Staff Physician] - 3-5 Days [facility] [Outside] - 3-5 Days
[2020-02-22 12:06] LABS: Hematocrit 42.3 % (30.3-42.9); Mean Corpuscular HGB Conc 33 % (30-34); Mean Corpuscular Volume 94 fl (79-97); Platelet Count 295 K/mm3 (140-440); Red Cell Distribution Width 13.5 % (13.2-15.2)
[2020-02-22 12:13] LABS: INR 1.15 (0.87-1.13)
[2020-02-22 12:18] LABS: Blood Urea Nitrogen 15 mg/dL (7-17); Calcium 10.4 mg/dL (8.4-10.2); Hemolysis Index 3
[2020-02-22 12:24] LABS: BUN/Creatinine Ratio 30
--- NOTE | 2020-02-22 14:06 | Cat Scan Report ---
CT ABDOMEN AND PELVIS WITH CONTRAST INDICATION: Left upper quadrant feeding tube malfunction, discharge CONTRAST: 100 cc Omnipaque 300 IV COMPARISON: CTA abdomen and pelvis 05/29/[address] scans at this location are performed using CT dose reduction for ALARA by means of automated e xposure control. FINDINGS: Mild chronic changes are seen in the lung bases without significant acute abnormality noted . No pneumoperitoneum is seen. Anterior pelvic wall fatty hernias are again seen without significant change. PEG tube appears well situated in the mid stomach with balloon well inflated. No fluid collections ar e seen in this area with the tract into extending without obvious abnormality to the skin surface. I see no abnormalities of the liver, spleen, adrenals, gallbladder, bile ducts, pancreas, or right ki dney. There appears to be a tiny cyst in the left kidney. No lymphadenopathy is seen. No free fluid i s noted. Prominent colonic diverticulosis is distributed widely. I do not see convincing evidence of acute div erticulitis however. Moderate amount of stool in the rectum might indicate mild impaction but I do no t see proximal obstructive change. There is a suggestion of mild wall thickening in the mid right col on area of heavy diverticulosis which is not obviously associated with acute inflammation and may be a chronic change. No evidence of bowel obstruction is seen. No urinary obstructive changes are noted. Uterus shows multiple calcified leiomyomata. No adnexal mas ses are seen. IMPRESSION: 1. PEG tube appears within normal limits with no displacement or abnormal fluid collections 2. Prominent colonic diverticulosis as above. In an area of heavy diverticulosis in the mid right col on there is a suggestion of mild wall thickening which I suspect is a chronic change. I would suggest follow-up of this area, however. 3. Multiple uterine leiomyomata Signer Name: Bryan Mcneill MD Signed: 02/22/2020 2:01 PM Workstation Name: [id number]
[2020-02-22 14:35] VITALS: BP 138/76
--- NOTE | 2020-02-22 16:16 | XRay Report ---
ABDOMEN 2 VIEWS INDICATION / CLINICAL INFORMATION: s/p peg tube replacement. COMPARISON: None available. FINDINGS: TUBES / LINES: Gastrostomy tube is noted projected over the gastric lumen. After introduction of cont rast material there is filling of the gastric lumen. No evidence of extraluminal contrast extravasati on. BOWEL GAS PATTERN: Nonobstructive bowel gas pattern. FREE AIR / EXTRALUMINAL GAS: None seen. ADDITIONAL FINDINGS: Minimal contrast material is noted filling the bilateral renal collecting system . CHEST: Visualized chest shows no significant abnormality. IMPRESSION: 1. Gastrostomy tube in appropriate position. Signer Name: Varun Villa MD Signed: 02/22/2020 4:11 PM Workstation Name: [id number]
== END 2020-02-22 18:00 | disposition home or self-care (01) ==
LOC: ED 10:57
DX: S31.109A Unspecified open wound of abdominal wall, unspecified quadrant without penetration into peritoneal cavity, initial encounter (principal); R93.5 Abnormal findings on diagnostic imaging of other abdominal regions, including retroperitoneum; Z43.1 Encounter for attention to gastrostomy; I10 Essential (primary) hypertension; Z98.890 Other specified postprocedural states; Z87.891 Personal history of nicotine dependence; Z79.899 Other long term (current) drug therapy; X58.XXXA Exposure to other specified factors, initial encounter; Y93.89 Activity, other specified; Y92.89 Other specified places as the place of occurrence of the external cause; Y99.8 Other external cause status
CPT/HCPCS: 36415; 43761; 74018; 74177; 80048; 82550; 83735; 85027; 85610; 99284; J7040; Q9967